=== PATIENT | male | born 1970 | race Caucasian/White ===

== ENCOUNTER 2020-08-05 17:44 | Outpatient (RCR) | payer BC, SELFPAY ==
[2020-08-05] MEDS: COVID-19 VACC, MRNA(PFIZER)/PF 30 MCG/0.3 ML SYRINGE IM (13:56)
[2020-08-26] MEDS: COVID-19 VACC, MRNA(PFIZER)/PF 30 MCG/0.3 ML SYRINGE IM (14:06)
== END 2020-08-05 23:59 ==
LOC: IMMUN 17:44
PROVIDERS: PCP Family Medicine; Visit Provider Family Medicine
DX: Z23 Encounter for immunization (principal)
CPT/HCPCS: 0001A; 0002A; 91300